=== PATIENT | male | born 1980 | race American Indian/Alaskan Native ===

== ENCOUNTER 2018-05-11 11:17 | Emergency (ER) | payer BC ==
[2018-05-11 12:01] VITALS: BP 145/82; PULSE 98; RESP 18; TEMP 99.4; O2SAT 99
--- NOTE | 2018-05-11 12:53 | ED PDOC ---
Arrival/HPI - General Chief Complaint: Lower Extremity Problem/Injury Time Seen by Provider: 05/11/18 12:52 Historian: Patient - History of Present Illness Narrative History of Present Illness (Text): 05/11/18 14:47 37-year-old male with a history of rheumatoid arthritis presents today with left knee pain status post fall. Patient states he was throwing the garbage out and twisted the knee as he missed a step. Patient states he landed on the left knee. Denies hitting his head. No medications have been taken for pain at home. Patient states he applied BenGay without improvement. Patient complaining of pain and swelling over the anterior aspect of the knee. Patient states the majority of the knee is on the knee cap. Patient denies calf pain. Denies any other complaints. Past Medical History - Provider Review Nursing Documentation Reviewed: Yes - Travel History Have you recently traveled outside [place] w/in the past 3 mons?: No - Infectious Disease Hx of Infectious Diseases: None - Cardiac Hx Cardiac Disorders: No - Musculoskeletal/Rheumatological Hx Arthritis: Yes - Psychiatric Hx Substance Use: No - Anesthesia Hx Anesthesia: No Family/Social History - Physician Review Nursing Documentation Reviewed: Yes Family/Social History: Unknown Family HX Smoking Status: Unknown If Ever Smoked Hx Alcohol Use: Yes Frequency of alcohol use: Socially Hx Substance Use: No Allergies/Home Meds Allergies/Adverse Reactions: Allergies shellfish derived Allergy (Verified 05/11/18 12:02) RASH Review of Systems - Review of Systems Constitutional: absent: Fatigue, Fevers Respiratory: absent: SOB, Cough Cardiovascular: absent: Chest Pain, Palpitations Gastrointestinal: absent: Abdominal Pain, Nausea, Vomiting Musculoskeletal: Arthralgias Skin: absent: Rash Neurological: absent: Headache, Dizziness Psychiatric: absent: Anxiety, Depression Physical Exam Vital Signs Reviewed: Yes Vital Signs Temp Pulse Resp BP Pulse Ox 05/11/18 11:57 99.4 F 98 H 18 145/82 99 Temperature: Afebrile Blood Pressure: Normal Pulse: Regular Respiratory Rate: Normal Appearance: Positive for: Well-Appearing, Non-Toxic, Comfortable Pain Distress: None Mental Status: Positive for: Alert and Oriented X 3 - Systems Exam Head: Present: Atraumatic Mouth: Present: Moist Mucous Membranes Neck: Present: Normal Range of Motion Respiratory/Chest: Present: Clear to Auscultation, Good Air Exchange. No: Respiratory Distress, Accessory Muscle Use Cardiovascular: Present: Regular Rate and Rhythm, Normal S1, S2. No: Murmurs Upper Extremity: Present: Normal Inspection, Normal ROM Lower Extremity: Present: NORMAL PULSES, Tenderness (left knee; + ttp over the anterior aspect of the left knee. no erythema; no warmth. limited full flexion of knee. no calf tenderness. sensation and distal pulses intact. cap refill <2. ), Swelling, Neurovascularly Intact, Capillary Refill < 2 s. No: CALF TENDERNESS, Normal ROM, Erythema Neurological: Present: GCS=15 Skin: Present: Warm, Dry, Normal Color. No: Rashes Psychiatric: Present: Alert, Oriented x 3 Medical Decision Making ED Course and Treatment: 05/11/18 15:07 Patient nontoxic well-appearing in no distress with stable vital signs X-rays of the left knee: FINDINGS: BONES: Normal. No fracture. JOINTS: There is severe degeneration in the lateral compartment and patellofemoral joint with joint space narrowing and osteophyte formation. JOINT EFFUSION: None. OTHER FINDINGS: None. 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 toradol IM pt reassessment; pt feeling better. still with some pain. Patient placed in knee immobilizer. Crutches given for ambulation I discussed all results with patient advised to followup with the orthopedist for the next 2 days. Return if symptoms worsen persist or new symptoms develop i advised the patient that although the xrays show no fracture; there is still a possibility for ligamentous or tendon injury the patient must see the orthopedist for further evaluation. Patient verbalizes understanding of discharge instructions and need for immediate followup. all aspects of this case were discussed the attending of record. Impression: knee pain Motrin every 6 hours as needed for pain Rest, ice, compression, elevation Use crutches for ambulation Followup with the orthopedist within the next 2 days Followup with primary care physician within the next 2 days Return if symptoms worsen persist or if new symptoms develop - RAD Interpretation Radiology Orders: 05/11/18 12:53 KNEE WITH PATELLA LEFT 3 VIEW [RAD] Stat - Medication Orders Current Medication Orders: Discontinued Medications Ketorolac Tromethamine (Toradol) 60 mg IM STAT STA Stop: 05/11/18 12:54 Last Admin: 05/11/18 13:09 Dose: 60 mg MAR Pain Assessment Document 05/11/18 13:09 YOVANI (Rec: 05/11/18 13:11 YOVANI [id number]) Pain Reassessment Is this a pain reassessment? Yes Presence of Pain Presence of Pain Yes Pain Scale Used Pain Scale Used Numeric Location Left, Right or Bilateral Left Pain Location Body Site Knee Description Description Sharp Intensity of Pain at present 8 IM Administration Charges Document 05/11/18 13:09 YOVANI (Rec: 05/11/18 13:11 YOVANI [id number]) Injection Site MAR Injection Site Left Deltoid Charges for Administration # of IM Administrations 1 Disposition/Present on Arrival - Present on Arrival Any Indicators Present on Arrival: No History of DVT/PE: No History of Uncontrolled Diabetes: No Urinary Catheter: No History of Decub. Ulcer: No History Surgical Site Infection Following: None - Disposition Have Diagnosis and Disposition been Completed?: Yes Diagnosis: Knee pain Disposition: HOME/ ROUTINE Disposition Time: 12:53 Patient Plan: Discharge Condition: GOOD Discharge Instructions (ExitCare): Knee Pain (DC) Additional Instructions: Motrin every 6 hours as needed for pain Rest, ice, compression, elevation Use crutches for ambulation Followup with the orthopedist within the next 2 days Followup with primary care physician within the next 2 days Return if symptoms worsen persist or if new symptoms develop Prescriptions: Ibuprofen [Motrin] 600 mg PO Q6H PRN #20 tab PRN Reason: pain/fever reduction Referrals: Charlie Gr III, MD [Medical Doctor] - Follow up with primary Jose Guillen DO [Staff Provider] - Follow up with primary Soto Manzano MD [Staff Provider] - Follow up with primary [facility] [Outside] - Follow up with primary Forms: Exinda (Comoran), WORK NOTE
--- NOTE | 2018-05-11 13:35 | RAD ---
Date of service: 05/11/2018 PROCEDURE: Left Knee Radiographs. HISTORY: Pain. COMPARISON: None. FINDINGS: BONES: Normal. No fracture. JOINTS: There is severe degeneration in the lateral compartment and patellofemoral joint with joint space narrowing and osteophyte formation. JOINT EFFUSION: None. OTHER FINDINGS: None. 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
== END 2018-05-11 14:40 | disposition home or self-care (01) ==
LOC: ED 11:17
DX: M25.562 Pain in left knee (principal)
CPT/HCPCS: 73562; 96372; 99283; J1885